=== PATIENT | male | born 1955 | race Caucasian/White ===

== ENCOUNTER 2017-07-23 06:02 | Inpatient (IN) | payer OTHER ==
[2017-07-23] MEDS ORDERED: NACL 0.9% 3 ML SYG IV (07:30)
[2017-07-23] MEDS ORDERED: DOCUSATE SODIUM 100 MG CAP PO (07:30)
[2017-07-23] MEDS ORDERED: BISACODYL (EC) 5 MG TAB PO (07:30)
[2017-07-23] MEDS: DEXTROSE 5%-0.9% NACL 1,000 ML IV ×2 (08:00→18:00)
[2017-07-23] MEDS ORDERED: ONDANSETRON 4 MG INJ IV (08:00)
[2017-07-23] MEDS: SENNA TAB PO (09:20)
[2017-07-23] MEDS: FAMOTIDINE 20 MG TAB PO ×2 (09:20→22:14)
[2017-07-23] MEDS: BISACODYL (EC) 5 MG TAB PO (12:20)
[2017-07-23] MEDS: BISACODYL 10 MG SUPP PR (14:58)
[2017-07-23] MEDS: HYDROCODONE/APAP (5/325) TAB PO (17:04)
[2017-07-24] MEDS: DEXTROSE 5%-0.9% NACL 1,000 ML IV ×4 (00:36→23:37)
[2017-07-24 05:51] LABS: ADD MAN DIFF? NO
[2017-07-24 06:01] LABS: BASOPHILS % 0.2 % (0.0-2.0); EOSINOPHILS % 0.2 % (0.0-7.0); HEMATOCRIT 25.1 % (42.0-52.0); HEMOGLOBIN 8.6 g/dl (14.0-18.0); LYMPHOCYTES % 16.7 % (15.0-51.0); MEAN CORPUSCULAR HEMOGLOBIN 34.7 pg (29.0-33.0); MEAN CORPUSCULAR HGB CONC 34.3 g/dl (32.0-37.0); MEAN CORPUSCULAR VOLUME 101.2 fl (82.0-101.0); MEAN PLATELET VOLUME 9.9 fl (7.4-10.4); MONOCYTE # 0.6 10^3/ul (0.3-0.9); MONOCYTES % 9.8 % (0.0-11.0); NEUTROPHIL # 4.5 10^3/ul (1.6-7.5); NEUTROPHILS % 72.8 % (39.0-77.0); PLATELET COUNT 104 10^3/UL (140-415); RED BLOOD COUNT 2.48 10^6/ul (4.70-6.10); RED CELL DISTRIBUTION WIDTH 11.7 % (11.5-14.5)
[2017-07-24 06:01] LABS: WHITE BLOOD COUNT 6.2 10^3/ul (4.8-10.8)
[2017-07-24 06:30] LABS: INR 1.06; PROTIME 13.9 Sec (11.9-14.9); PT RATIO 1.1
[2017-07-24 06:31] LABS: PARTIAL THROMBOPLASTIN TIME 35.6 Sec (25.0-35.0)
[2017-07-24] MEDS: HYDROCODONE/APAP (5/325) TAB PO ×2 (06:38→19:40)
[2017-07-24 07:21] LABS: ALANINE AMINOTRANSFERASE 50 IU/L (13-69); ALBUMIN 3.4 g/dl (3.3-4.9); ALKALINE PHOSPHATASE 54 IU/L (42-121); ANION GAP 11 (8-16); ASPARTATE AMINO TRANSFERASE 60 IU/L (15-46); BILIRUBIN,INDIRECT 0.6 mg/dl (0-1.1); BILIRUBIN,TOTAL 0.6 mg/dl (0.2-1.3); BLOOD UREA NITROGEN 12 mg/dl (7-20); CALCIUM 8.1 mg/dl (8.4-10.2); CARBON DIOXIDE 27 mmol/L (21-31); CHLORIDE 98 mmol/L (97-110); CREATININE 0.69 mg/dl (0.61-1.24); GLUCOSE 125 mg/dl (70-220); POTASSIUM 3.7 mmol/L (3.5-5.1); SODIUM 132 mmol/L (135-144); TOTAL PROTEIN 6.8 g/dl (6.1-8.1)
[2017-07-24] MEDS: FAMOTIDINE 20 MG TAB PO ×3 (09:00→21:00)
[2017-07-24] MEDS: SENNA TAB PO ×2 (09:00→12:20)
[2017-07-24] MEDS: BISACODYL (EC) 5 MG TAB PO (12:20)
[2017-07-24] MEDS: POLYETHYLENE GLYCOL 17 GM PACKET PO (14:37)
[2017-07-24] MEDS: ACETAMINOPHEN 325 MG TAB PO (19:11)
[2017-07-25] MEDS: BISACODYL (EC) 5 MG TAB PO ×2 (01:00→08:56)
[2017-07-25] MEDS: HYDROCODONE/APAP (5/325) TAB PO ×2 (03:10→15:07)
[2017-07-25] MEDS: FAMOTIDINE 20 MG TAB PO ×2 (08:55→21:00)
[2017-07-25] MEDS: SENNA TAB PO (08:55)
[2017-07-25] MEDS: POLYETHYLENE GLYCOL 17 GM PACKET PO (08:56)
[2017-07-25] MEDS: DEXTROSE 5%-0.9% NACL 1,000 ML IV ×2 (10:54→22:42)
[2017-07-25 11:41] LABS: ADD MAN DIFF? NO; HAAIG REFLEX REFLEX FILED
[2017-07-25] MEDS: ACETAMINOPHEN 325 MG TAB PO ×3 (11:45→22:41)
[2017-07-25 11:49] LABS: RETICULOCYTE COUNT # 0.048 X10^6 (0.020-0.110); RETICULOCYTE COUNT % 1.5 % (0.5-1.5)
[2017-07-25 11:49] LABS: RETICULOCYTE RBC 3.31
[2017-07-25 11:50] LABS: BASOPHILS % 0.3 % (0.0-2.0); EOSINOPHILS % 0.6 % (0.0-7.0); HEMATOCRIT 32.8 % (42.0-52.0); LYMPHOCYTES # 0.9 10^3/ul (0.8-2.9); LYMPHOCYTES % 13.5 % (15.0-51.0); MEAN CORPUSCULAR HEMOGLOBIN 32.9 pg (29.0-33.0); MEAN CORPUSCULAR HGB CONC 33.5 g/dl (32.0-37.0); MEAN CORPUSCULAR VOLUME 98.2 fl (82.0-101.0); MEAN PLATELET VOLUME 9.3 fl (7.4-10.4); MONOCYTE # 0.5 10^3/ul (0.3-0.9); MONOCYTES % 7.2 % (0.0-11.0); NEUTROPHIL # 5.1 10^3/ul (1.6-7.5); NEUTROPHILS % 77.8 % (39.0-77.0); PLATELET COUNT 148 10^3/UL (140-415); RED BLOOD COUNT 3.34 10^6/ul (4.70-6.10); RED CELL DISTRIBUTION WIDTH 16.2 % (11.5-14.5)
[2017-07-25 11:50] LABS: WHITE BLOOD COUNT 6.5 10^3/ul (4.8-10.8)
[2017-07-25 12:17] LABS: IRON 72 ug/dl (35-150)
[2017-07-25 12:18] LABS: LACTATE DEHYDROGENASE 774 IU/L (313-618)
[2017-07-25 12:23] LABS: ANION GAP 14 (8-16); BLOOD UREA NITROGEN 7 mg/dl (7-20); CALCIUM 8.5 mg/dl (8.4-10.2); CARBON DIOXIDE 28 mmol/L (21-31); CHLORIDE 100 mmol/L (97-110); CREATININE 0.71 mg/dl (0.61-1.24); GLUCOSE 127 mg/dl (70-220); POTASSIUM 3.6 mmol/L (3.5-5.1); SODIUM 138 mmol/L (135-144)
[2017-07-25 12:29] LABS: % IRON SATURATION 24 % SAT (22-52); TOTAL IRON BINDING CAPACITY 297 ug/dl (241-421)
[2017-07-25 12:51] LABS: HEPATITIS B SURFACE ANTIGEN NEGATIVE (NEGATIVE)
[2017-07-25 13:08] LABS: HEPATITIS B CORE ANTIBODY NEGATIVE (NEGATIVE); HEPATITIS C VIRAL ANTIBODY NEGATIVE (NEGATIVE)
[2017-07-25 13:24] LABS: FOLATE 11.4 ng/ml (2.8-20.0)
[2017-07-25 14:07] LABS: HIV 1&2 ANTIBODY NEGATIVE (NEGATIVE)
[2017-07-26] MEDS: DEXTROSE 5%-0.9% NACL 1,000 ML IV ×2 (06:00→08:35)
[2017-07-26] MEDS ORDERED: SUCCINYLCHOLINE CHLORIDE 100 MG/5 ML SYG IV (07:00)
[2017-07-26] MEDS: POLYETHYLENE GLYCOL 17 GM PACKET PO (08:25)
[2017-07-26] MEDS: FAMOTIDINE 20 MG TAB PO ×2 (08:25→22:49)
[2017-07-26] MEDS: SENNA TAB PO (08:26)
[2017-07-26 10:47] LABS: PROTEIN, TOTAL 6.7 g/dL (6.1-8.1)
[2017-07-26] MEDS ORDERED: ROCURONIUM 50 MG INJ ×3 (16:12→19:07)
[2017-07-26] MEDS ORDERED: LIDOCAINE 2% (SDV) 5 ML INJ (16:12)
[2017-07-26] MEDS ORDERED: PROPOFOL 20 ML (16:12)
[2017-07-26] MEDS ORDERED: MIDAZOLAM 1 MG/ML 2 ML INJ ×2 (16:12→21:02)
[2017-07-26] MEDS ORDERED: CEFAZOLIN 1 GM INJ ×2 (16:28→20:36)
[2017-07-26] MEDS: POLYMYXIN/BACITRACIN 1L IRRIG (16:58)
[2017-07-26] MEDS ORDERED: DIPHENHYDRAMINE 50 MG INJ IV (17:30)
[2017-07-26] MEDS ORDERED: HYDROmorphONE (0.2 MG/ML) 10ML SYG IV ×2 (17:30)
[2017-07-26] MEDS ORDERED: ONDANSETRON 4 MG INJ IV (17:30)
[2017-07-26] MEDS ORDERED: LORAZEPAM 2 MG INJ IV (17:30)
[2017-07-26] MEDS ORDERED: MEPERIDINE 25 MG INJ IV (17:30)
[2017-07-26] MEDS ORDERED: LABETALOL HCL 20MG INJ (17:34)
[2017-07-26] MEDS ORDERED: ONDANSETRON 4 MG INJ (17:35)
[2017-07-26] MEDS ORDERED: DEXAMETHASONE 4 MG/ML 1 ML INJ (17:35)
[2017-07-26 17:46] LABS: IMMEDIATE SPIN CROSSMATCH 1 4
[2017-07-26] MEDS ORDERED: SUGAMMADEX SODIUM 200 MG/2 ML VIAL IV ×2 (20:45→20:50)
[2017-07-26] MEDS: MIDAZOLAM 1 MG/ML 2 ML INJ IV (21:16)
[2017-07-26] MEDS: morphine 2 MG INJ IV (21:51)
[2017-07-26] MEDS ORDERED: morphine 4 MG/ML VIAL IV (22:30)
[2017-07-26] MEDS ORDERED: NACL 0.9% 3 ML SYG IV (22:30)
[2017-07-26] MEDS ORDERED: HYDROCODONE/APAP (5/325) TAB PO (22:30)
[2017-07-26] MEDS: CEFAZOLIN 1 GM/50 ML (PMX) 50 ML IVPB (22:49)
[2017-07-26] MEDS: SOD CHLORIDE 0.9% 1,000 ML IV (22:49)
[2017-07-26 22:56] LABS: ADD MAN DIFF? NO
[2017-07-26 22:57] LABS: ABNORMAL IP MESSAGE 1; BASOPHILS % 0.1 % (0.0-2.0); HEMATOCRIT 29.3 % (42.0-52.0); HEMOGLOBIN 9.7 g/dl (14.0-18.0); LYMPHOCYTES # 0.4 10^3/ul (0.8-2.9); MEAN CORPUSCULAR HEMOGLOBIN 32.7 pg (29.0-33.0); MEAN CORPUSCULAR HGB CONC 33.1 g/dl (32.0-37.0); MEAN CORPUSCULAR VOLUME 98.7 fl (82.0-101.0); MEAN PLATELET VOLUME 8.6 fl (7.4-10.4); MONOCYTE # 0.4 10^3/ul (0.3-0.9); MONOCYTES % 3.7 % (0.0-11.0); NEUTROPHIL # 9.3 10^3/ul (1.6-7.5); NEUTROPHILS % 91.8 % (39.0-77.0); PLATELET COUNT 188 10^3/UL (140-415); POSITIVE DIFF @See below; RED BLOOD COUNT 2.97 10^6/ul (4.70-6.10); RED CELL DISTRIBUTION WIDTH 16.3 % (11.5-14.5)
[2017-07-26 22:57] LABS: WHITE BLOOD COUNT 10.1 10^3/ul (4.8-10.8)
[2017-07-26 23:16] LABS: ALANINE AMINOTRANSFERASE 43 IU/L (13-69); ALBUMIN 2.9 g/dl (3.3-4.9); ALBUMIN/GLOBULIN RATIO 0.85; ALKALINE PHOSPHATASE 58 IU/L (42-121); ANION GAP 14 (8-16); ASPARTATE AMINO TRANSFERASE 38 IU/L (15-46); BILIRUBIN,INDIRECT 0.6 mg/dl (0-1.1); BILIRUBIN,TOTAL 0.6 mg/dl (0.2-1.3); BLOOD UREA NITROGEN 6 mg/dl (7-20); CARBON DIOXIDE 25 mmol/L (21-31); CHLORIDE 106 mmol/L (97-110); GLUCOSE 172 mg/dl (70-220); POTASSIUM 4.1 mmol/L (3.5-5.1); SODIUM 141 mmol/L (135-144); TOTAL PROTEIN 6.3 g/dl (6.1-8.1)
[2017-07-27] MEDS: BISACODYL (EC) 5 MG TAB PO ×3 (03:18→22:58)
[2017-07-27] MEDS: CEFAZOLIN 1 GM/50 ML (PMX) 50 ML IVPB ×2 (06:06→14:30)
[2017-07-27] MEDS: POLYETHYLENE GLYCOL 17 GM PACKET PO (07:53)
[2017-07-27] MEDS: SENNA TAB PO (07:53)
[2017-07-27] MEDS: FAMOTIDINE 20 MG TAB PO ×2 (07:53→20:40)
[2017-07-27] MEDS: LORAZEPAM 2 MG INJ IV (07:57)
[2017-07-27] MEDS: ACETAMINOPHEN 325 MG TAB PO ×2 (08:22→20:31)
[2017-07-27] MEDS: SOD CHLORIDE 0.9% 1,000 ML IV ×2 (08:26→18:26)
[2017-07-27 14:57] LABS: HAPTOGLOBIN 208 mg/dL (43-212)
[2017-07-27 15:41] LABS: ALBUMIN 3.1 g/dL (3.8-4.8); ALPHA-1-GLOBULINS 0.5 g/dL (0.2-0.3); ALPHA-2-GLOBULINS 0.7 g/dL (0.5-0.9); BETA 2 GLOBULINS 0.4 g/dL (0.2-0.5); BETA GLOBULINS 0.5 g/dL (0.4-0.6); GAMMA GLOBULINS 1.6 g/dL (0.8-1.7)
[2017-07-27] MEDS: ENOXAPARIN 80 MG/0.8 ML SYG SC (19:55)
[2017-07-28] MEDS: SOD CHLORIDE 0.9% 1,000 ML IV ×2 (04:26→14:02)
[2017-07-28] MEDS: SENNA TAB PO (09:00)
[2017-07-28] MEDS: FAMOTIDINE 20 MG TAB PO (09:00)
[2017-07-28] MEDS: ENOXAPARIN 80 MG/0.8 ML SYG SC (09:00)
[2017-07-28] MEDS: POLYETHYLENE GLYCOL 17 GM PACKET PO (09:00)
[2017-07-28 11:51] LABS: ADD MAN DIFF? NO
[2017-07-28 12:02] LABS: WHITE BLOOD COUNT 7.9 10^3/ul (4.8-10.8)
[2017-07-28 12:02] LABS: BASOPHILS % 0.3 % (0.0-2.0); EOSINOPHILS # 0.1 10^3/ul (0.0-0.5); EOSINOPHILS % 0.6 % (0.0-7.0); HEMATOCRIT 27.3 % (42.0-52.0); HEMOGLOBIN 9.2 g/dl (14.0-18.0); LYMPHOCYTES # 0.9 10^3/ul (0.8-2.9); LYMPHOCYTES % 10.8 % (15.0-51.0); MEAN CORPUSCULAR HEMOGLOBIN 33.2 pg (29.0-33.0); MEAN CORPUSCULAR HGB CONC 33.7 g/dl (32.0-37.0); MEAN CORPUSCULAR VOLUME 98.6 fl (82.0-101.0); MEAN PLATELET VOLUME 8.8 fl (7.4-10.4); MONOCYTE # 0.9 10^3/ul (0.3-0.9); MONOCYTES % 10.7 % (0.0-11.0); NEUTROPHIL # 6.1 10^3/ul (1.6-7.5); NEUTROPHILS % 77.1 % (39.0-77.0); PLATELET COUNT 213 10^3/UL (140-415); RED BLOOD COUNT 2.77 10^6/ul (4.70-6.10); RED CELL DISTRIBUTION WIDTH 15.9 % (11.5-14.5)
[2017-07-28 12:12] LABS: ANION GAP 14 (8-16); BLOOD UREA NITROGEN 10 mg/dl (7-20); CALCIUM 8.1 mg/dl (8.4-10.2); CARBON DIOXIDE 26 mmol/L (21-31); CHLORIDE 104 mmol/L (97-110); CREATININE 0.71 mg/dl (0.61-1.24); GLUCOSE 103 mg/dl (70-220); MAGNESIUM 1.9 mg/dl (1.7-2.5); SODIUM 140 mmol/L (135-144)
[2017-07-28] MEDS: APIXABAN 5 MG TABLET PO (17:37)
[2017-07-28] MEDS: BISACODYL (EC) 5 MG TAB PO (19:27)
== END 2017-07-28 19:30 | DRG 493 ==
LOC: MS1 06:02
PROVIDERS: Specialist
PROC: 0PSD04Z Reposition Left Humeral Head with Internal Fixation Device, Open Approach (ICD-10-PCS; principal; 2017-07-26 15:00)
PROC: 0LQ20ZZ Repair Left Shoulder Tendon, Open Approach (ICD-10-PCS; 2017-07-26 15:00)
PROC: 30233N1 Transfusion of Nonautologous Red Blood Cells into Peripheral Vein, Percutaneous Approach (ICD-10-PCS; 2017-07-26 16:09)
DX: S42.355A Nondisplaced comminuted fracture of shaft of humerus, left arm, initial encounter for closed fracture (principal); D62 Acute posthemorrhagic anemia; G56.32 Lesion of radial nerve, left upper limb; S80.212A Abrasion, left knee, initial encounter; S70.312A Abrasion, left thigh, initial encounter
CPT/HCPCS: 36430; 70450; 73030; 73200; 73221; 76700; 80048; 80053; 82607; 82728; 82746; 83010; 83540; 83615; 83735; 84155; 84165; 84443; 85025; 85045; 85610; 85730; 86644; 86703; 86704; 86709; 86803; 86850; 86900; 86901; 86920; 87086; 87340; 93005; 93971; 97166; 97535

== ENCOUNTER 2017-08-04 11:37 | Emergency (ER) | payer OTHER | END 2017-08-04 14:10 | disposition home or self-care (01) | LOC: FTE 11:37 | DX: G89.18 Other acute postprocedural pain (principal); S43.002A Unspecified subluxation of left shoulder joint, initial encounter; X58.XXXA Exposure to other specified factors, initial encounter; Y92.9 Unspecified place or not applicable | CPT/HCPCS: 99283-25; Z7502 ==